=== PATIENT | female | born 1985 | race Two or more races ===

== ENCOUNTER 2017-07-22 09:07 | Inpatient (IN) | payer BC ==
[~2017-07-22] VITALS: Ht 152.4 cm; Wt 65.0 kg
[2017-07-22] MEDS ORDERED: OXYTOCIN 30U/ 0.9% NaCL 500ML 500 ML IV SCH (14:17)
[2017-07-22] MEDS ORDERED: LACTATED RINGERS 1,000 ML IV SCH ×2 (14:17→17:00)
[2017-07-22] MEDS ORDERED: PLEASE ENTER ALLERGIES MC SCH ×2 (14:30)
[2017-07-22] MEDS ORDERED: PLEASE ENTER HEIGHT AND WEIGHT MC SCH (14:30)
[2017-07-22] MEDS ORDERED: LACTATED RINGERS 1,000 ML IVBOLUS ONE (14:30)
[2017-07-22] MEDS: METOCLOPRAMIDE 5 MG/ML, 2ML IV ONE ×2 (14:40→16:40)
[2017-07-22] MEDS: SODIUM CITRATE/CITRIC ACID 30 ML UDC PO ONE ×2 (14:40→16:40)
[2017-07-22 14:48] VITALS: BP 113/66
[2017-07-22] MEDS ORDERED: PREN1TAB69 PO (15:09)
[2017-07-22 15:17] LABS: HEMATOCRIT 35.8 % (34.6-47.8); HEMOGLOBIN 11.3 g/dL (11.7-16.4); WHITE BLOOD COUNT 12.2 x10^3/uL (3.4-10)
[2017-07-22] MEDS ORDERED: HYDROcodone/APAP 7.5-325MG/15ML UDC PO PRN (16:00)
[2017-07-22] MEDS ORDERED: ONDANSETRON 2MG/ML, 2ML IVPush PRN (16:00)
[2017-07-22] MEDS ORDERED: FENTANYL PF 100 MCG/2ML IV PRN (16:00)
[2017-07-22] MEDS ORDERED: MEPERIDINE/PF 25MG/0.5ML IVPush PRN (16:00)
[2017-07-22] MEDS ORDERED: LABETALOL 5MG/ML, 20ML IV PRN (16:00)
[2017-07-22] MEDS ORDERED: MIDAZOLAM 1 MG/ML, 2ML IV PRN (16:00)
[2017-07-22] MEDS ORDERED: EPHEDRINE 50 MG/ML, 1ML IVPush PRN (16:00)
[2017-07-22] MEDS ORDERED: OXYcodone 5 MG/5 ML ORAL.SOL UDC PO PRN (16:00)
[2017-07-22] MEDS ORDERED: PROMETHAZINE 25 MG/ML, 1ML IV PRN (16:00)
[2017-07-22] MEDS ORDERED: hydrALAzine 20 MG/ML, 1ML IV PRN (16:00)
[2017-07-22] MEDS ORDERED: ALBUTEROL SULFATE 2.5 MG/3 ML NPPB PRN (16:00)
[2017-07-22] MEDS ORDERED: HYDROmorphone 1 MG/ML, 1ML IV PRN (16:00)
[2017-07-22] MEDS ORDERED: SODIUM CITRATE/CITRIC ACID 30 ML UDC ONE ×2 (16:07→16:45)
[2017-07-22] MEDS ORDERED: OXYTOCIN 30U/ 0.9% NaCL 500ML 500 ML ONE (16:08)
[2017-07-22] MEDS ORDERED: METOCLOPRAMIDE 5 MG/ML, 2ML ONE ×2 (16:08→16:45)
[2017-07-22] MEDS ORDERED: NEWBORN KIT ONE (16:08)
[2017-07-22] MEDS ORDERED: FENTANYL PF 100 MCG/2ML ONE ×2 (16:18→16:45)
[2017-07-22] MEDS ORDERED: KETOROLAC 30 MG/1 ML ONE (16:45)
[2017-07-22] MEDS ORDERED: DEXAMETHASONE 4 MG/ML, 1ML ONE (16:45)
[2017-07-22] MEDS ORDERED: ONDANSETRON 2MG/ML, 2ML ONE (16:45)
[2017-07-22] MEDS ORDERED: OXYTOCIN 10 UNITS/ML, 1ML ONE (16:45)
[2017-07-22] MEDS ORDERED: CEFAZOLIN 1,000 MG ONE (16:45)
[2017-07-22] MEDS ORDERED: EPHEDRINE 50 MG/ML, 1ML ONE (16:45)
[2017-07-22] MEDS ORDERED: PHENYLEPHRINE 10 MG/ML ONE (16:45)
[2017-07-22] MEDS ORDERED: MEPERIDINE/PF 50 MG/ML IM PRN (18:30)
[2017-07-22] MEDS ORDERED: ONDANSETRON 2MG/ML, 2ML IV PRN (18:30)
[2017-07-22] MEDS ORDERED: SIMETHICONE 80 MG CHEW TAB PO PRN (18:30)
[2017-07-22] MEDS ORDERED: morphine SULFATE 10 MG/ML, 1ML IVPush PRN ×2 (18:30)
[2017-07-22] MEDS ORDERED: MEPERIDINE/PF 25MG/0.5ML IM PRN (18:30)
[2017-07-22] MEDS ORDERED: OXYcodone IR 5MG TABLET PO PRN ×2 (18:30)
[2017-07-22] MEDS ORDERED: CALCIUM CARBONATE 500 MG TAB.CHEW PO PRN (18:30)
[2017-07-22] MEDS ORDERED: MISOPROSTOL 200 MCG TABLET PR PRN (18:30)
[2017-07-22 20:05] VITALS: BP 104/62
[2017-07-22] MEDS: OXYTOCIN 30U/ 0.9% NaCL 500ML 500 ML IV SCH (20:05)
[2017-07-22] MEDS: LACTATED RINGERS 1,000 ML IV SCH ×2 (20:05)
[2017-07-22] MEDS: DOCUSATE 100 MG CAPSULE PO SCH (21:00)
[2017-07-22] MEDS: KETOROLAC 30 MG/1 ML IV SCH (23:44)
[2017-07-22 23:49] VITALS: BP 98/60
[2017-07-23] MEDS: LACTATED RINGERS 1,000 ML IV SCH ×5 (02:08→18:08)
[2017-07-23 02:15] LABS: HEMOGLOBIN 9.9 g/dL (11.7-16.4); WHITE BLOOD COUNT 13.9 x10^3/uL (3.4-10)
[2017-07-23] MEDS: OXYcodone/APAP 5/325MG TABLET PO PRN ×3 (02:31→18:26)
[2017-07-23] MEDS: OXYTOCIN 30U/ 0.9% NaCL 500ML 500 ML IV SCH ×2 (04:08→14:08)
[2017-07-23 04:20] VITALS: BP 99/58
[2017-07-23] MEDS: KETOROLAC 30 MG/1 ML IV SCH ×3 (05:30→17:30)
[2017-07-23 07:00] VITALS: BP 104/62
[2017-07-23] MEDS ORDERED: MEASLES,MUMPS&RUBELLA VACC/PF 0.5 ML SQ-VACC ONE ×2 (08:00→15:11)
[2017-07-23] MEDS ORDERED: PRENATAL VIT/IRON/FA 1 EACH TABLET ONE (08:10)
[2017-07-23] MEDS ORDERED: DOCUSATE 100 MG CAPSULE ONE (08:10)
[2017-07-23] MEDS: DOCUSATE 100 MG CAPSULE PO SCH (08:14)
[2017-07-23] MEDS: PRENATAL VIT/IRON/FA 1 EACH TABLET PO SCH (08:14)
[2017-07-23 12:00] VITALS: BP 100/70
[2017-07-23] MEDS: IBUPROFEN 600 MG TABLET PO PRN (18:26)
[2017-07-23 19:10] VITALS: BP 96/61
[2017-07-24] MEDS: OXYTOCIN 30U/ 0.9% NaCL 500ML 500 ML IV SCH (00:08)
[2017-07-24] MEDS: IBUPROFEN 600 MG TABLET PO PRN ×2 (00:26→13:39)
[2017-07-24] MEDS: OXYcodone/APAP 5/325MG TABLET PO PRN ×2 (00:26→13:38)
[2017-07-24] MEDS: DOCUSATE 100 MG CAPSULE PO SCH ×2 (00:26→13:40)
[2017-07-24] MEDS: LACTATED RINGERS 1,000 ML IV SCH (02:08)
[2017-07-24 07:30] VITALS: BP 98/56
[2017-07-24] MEDS ORDERED: MEASLES,MUMPS&RUBELLA VACC/PF 0.5 ML SQ-VACC ONE (10:34)
[2017-07-24] MEDS ORDERED: OXYC-302 PO (12:52)
[2017-07-24] MEDS ORDERED: IBUP-1222 PO (12:53)
[2017-07-24] MEDS ORDERED: DOCU-131 PO (12:56)
[2017-07-24] MEDS: PRENATAL VIT/IRON/FA 1 EACH TABLET PO SCH (13:36)
== END 2017-07-24 19:00 | disposition home or self-care (01) | DRG 766 ==
LOC: LDIP 14:10 → 2NW 19:52
PROVIDERS: ADMIT Obstetrics & Gynecology; ATTEND Obstetrics & Gynecology
PROC: 10D00Z1 Extraction of Products of Conception, Low, Open Approach (ICD-10-PCS; principal; 2017-07-22)
DX: O34.211 Maternal care for low transverse scar from previous cesarean delivery (principal); D50.9 Iron deficiency anemia, unspecified; O99.02 Anemia complicating childbirth; O69.81X0 Labor and delivery complicated by cord around neck, without compression, not applicable or unspecified; Z3A.39 39 weeks gestation of pregnancy; Z37.0 Single live birth; Z87.440 Personal history of urinary (tract) infections
CPT/HCPCS: 36415; 85025; 86850; 86900; J0690; J1100; J1885; J2405; J3010; J2370; J2590; J2765; J7120